=== PATIENT | male | born 1970 | race American Indian/Alaskan Native ===

== ENCOUNTER 2016-07-20 19:19 | Emergency (ER) | payer OTHER ==
[2016-07-20 20:40] LABS: Basophils % (Auto) 0.9 % (0.0-1.8); Eosinophils % (Auto) 0.6 % (0.0-4.3); Hematocrit 50.2 % (35.5-45.6); Hemoglobin 16.7 gm/dl (11.8-15.2); Mean Corpuscular HGB Conc 33 % (32-34); Mean Corpuscular Hemoglobin 32 pg (28-32); Mean Corpuscular Volume 97 fl (84-94); Platelet Count 300 K/mm3 (140-440); Red Blood Count 5.19 M/mm3 (3.65-5.03); Red Cell Distribution Width 13.4 % (13.2-15.2); White Blood Count 8.5 K/mm3 (4.5-11.0)
--- NOTE | 2016-07-20 20:55 | Cat Scan Report ---
FINAL REPORT PROCEDURE: CT HEAD/BRAIN WO CON TECHNIQUE: Computerized tomography of the head was performed without contrast material. HISTORY: GONCALVES, dizzy COMPARISON: No prior studies are available for comparison. FINDINGS: Skull and scalp: Normal. Paranasal sinuses: Mild opacification of the ethmoid sinuses. Nasal bone fracture, age is not determined.. Ventricles and subarachnoid spaces: Normal. Cerebrum: No evidence of hemorrhage, acute infarction or mass . Cerebellum and brainstem: No evidence of hemorrhage, acute infarction or mass. Vasculature: Normal. Comments: None. IMPRESSION: There is no evidence of an acute intracranial process.
[2016-07-20 21:01] LABS: Alanine Aminotransferase 21 units/L (7-56); Albumin 4.5 g/dL (3.9-5); Albumin/Globulin Ratio 1.2 %; Alkaline Phosphatase 62 units/L (35-129); Anion Gap 19 mmol/L; Blood Urea Nitrogen 15 mg/dL (9-20); Calcium 9.5 mg/dL (8.4-10.2); Carbon Dioxide 24 mmol/L (22-30); Chloride 99.4 mmol/L (98-107); Glucose 79 mg/dL (75-100); Potassium 4.4 mmol/L (3.6-5.0); Sodium 138 mmol/L (137-145); Total Protein 8.4 g/dL (6.3-8.2)
--- NOTE | 2016-07-21 02:20 | Emergency Department Report ---
HPI - General Chief Complaint: Headache Time Seen by Provider: 07/21/16 02:04 - HPI HPI: Room 24 The patient is a 46-year-old male presenting with a chief complaint of headache. The patient states earlier today he had a frontal headache described as a migraine. Patient states he "had a situation" which led him to get upset. The patient states he then began to get double vision in his left eye. 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 The patient states he developed nausea but denied vomiting. The patient states vomiting is bothering him currently is a headache which he gives a score of 9/10 Location: Head Duration: [see above] Quality: Headache Severity: 9/10 Modifying factors: [see above] Context: [see above] Mode of transportation: The patient drove himself to the emergency department and there are no visitors present ED Past Medical Hx - Past Medical History Hx Hypertension: Yes Additional medical history: Glaucoma - Surgical History Past Surgical History?: No - Family History Family history: no significant - Social History Smoking Status: Never Smoker Substance Use Type: None - Medications Home Medications: Home Medications Medication Instructions Recorded Confirmed Last Taken Type HYDROcodone/APAP 5-325 [[place] 1 - 2 each PO Q6HR PRN #14 tablet 07/21/16 Unknown Rx 5/325] Ondansetron [Zofran Odt] 4 mg PO Q8H PRN #20 tab.rapdis 07/21/16 Unknown Rx ED Review of Systems ROS: Stated complaint: BLUR VISION, HEADACHES Other details as noted in HPI Comment: All other systems reviewed and negative Constitutional: denies: chills, fever Eyes: vision change ENT: denies: ear pain, throat pain Respiratory: denies: cough, shortness of breath, wheezing Cardiovascular: denies: chest pain, palpitations Endocrine: no symptoms reported Gastrointestinal: nausea. denies: abdominal pain, vomiting, diarrhea Genitourinary: denies: urgency, dysuria Musculoskeletal: denies: back pain, joint swelling, arthralgia Skin: denies: rash, lesions Neurological: headache. denies: weakness, paresthesias Psychiatric: denies: anxiety, depression Hematological/Lymphatic: denies: easy bleeding, easy bruising Physical Exam - Physical Exam Vital Signs: Vital Signs 07/20/16 07/21/16 07/21/16 19:56 00:48 00:50 Temperature 98.7 F Pulse Rate 73 Respiratory Rate Blood Pressure 124/84 149/94 O2 Sat by Pulse 98 100 93 Oximetry 07/21/16 07/21/16 01:00 01:25 Temperature Pulse Rate Respiratory 14 Rate Blood Pressure 127/81 O2 Sat by Pulse 97 98 Oximetry Physical Exam: GENERAL: The patient is well-developed well-nourished male lying on stretcher resting not appearing to be in acute distress. [] HEENT: Normocephalic. Atraumatic. Extraocular motions are intact. Patient has moist mucous membranes. Visual acuity 20/25 OS. Vikram-Pen values OS: 8, 10 , 16 NECK: Supple. No meningitic signs are noted. Trachea midline CHEST/LUNGS: Clear to auscultation. There is no respiratory distress noted. HEART/CARDIOVASCULAR: Regular. There is no tachycardia. There is no gallop rub or murmur. ABDOMEN: Abdomen is soft, nontender. Patient has normal bowel sounds. There is no abdominal distention. SKIN: There is no rash. There is no edema. There is no diaphoresis. NEURO: The patient is awake, alert, and oriented. The patient is cooperative. The patient has no focal neurologic deficits. The patient has normal speech. Cranial nerves II through XII grossly intact MUSCULOSKELETAL: There is no evidence of acute injury. ED Course Vital Signs 07/20/16 07/21/16 07/21/16 19:56 00:48 00:50 Temperature 98.7 F Pulse Rate 73 Respiratory Rate Blood Pressure 124/84 149/94 O2 Sat by Pulse 98 100 93 Oximetry 07/21/16 07/21/16 01:00 01:25 Temperature Pulse Rate Respiratory 14 Rate Blood Pressure 127/81 O2 Sat by Pulse 97 98 Oximetry ED Medical Decision Making - Lab Data Result diagrams: 07/20/16 20:14 07/20/16 20:14 Laboratory Tests 07/20/16 07/20/16 20:14 20:14 WBC 8.5 RBC 5.19 H Hgb 16.7 H Hct 50.2 H MCV 97 H MCH 32 MCHC 33 RDW 13.4 Plt Count 300 Lymph % (Auto) 17.6 Crawford % (Auto) 6.3 Eos % (Auto) 0.6 Baso % (Auto) 0.9 Lymph # 1.5 Crawford # 0.5 Eos # 0.1 Baso # 0.1 Seg Neutrophils % 74.6 H Seg Neutrophils # 6.3 Carbon Dioxide 24 BUN 15 Creatinine 1.0 Estimated GFR > 60 BUN/Creatinine Ratio 15.00 Glucose 79 Calcium 9.5 Total Bilirubin 0.50 AST 30 ALT 21 Alkaline Phosphatase 62 Total Protein 8.4 H Albumin 4.5 Albumin/Globulin Ratio 1.2 Sodium 138, potassium 4.4, chloride 99.4 - Differential Diagnosis ICH, intracranial mass, glaucoma, headache, Critical care attestation.: If time is entered above; I have spent that time in minutes in the direct care of this critically ill patient, excluding procedure time. ED Disposition Clinical Impression: Headache Disposition: DISCHARGED TO HOME OR SELFCARE Is pt being admited?: No Does the pt Need Aspirin: No Condition: Stable Instructions: Acute Headache (ED), Glaucoma (ED) Additional Instructions: Return to the emergency department immediately should you develop worsening symptoms, fever, inability to tolerate food or liquid or any other concerns. Prescriptions: HYDROcodone/APAP 5-325 [[place] 5/325] 1 - 2 each PO Q6HR PRN #14 tablet PRN Reason: Pain Ondansetron [Zofran Odt] 4 mg PO Q8H PRN #20 tab.rapdis PRN Reason: Nausea Referrals: SIERRA HIRSCH MD [Staff Physician] - 3-5 Days (Dr. Hirsch is an license and permit specialist. Please follow up with him to be established as a patient) JAREN KHOURY MD [Staff Physician] - 3-5 Days (Dr. Khoury is a primary physician. Please follow up with him to be established as a patient) [facility] [Outside] - 3-5 Days Time of Disposition: 04:16
--- NOTE | 2016-07-21 03:57 | Cat Scan Report ---
FINAL REPORT PROCEDURE: CT HEAD/BRAIN WO CON TECHNIQUE: Computerized tomography of the head was performed without contrast material. HISTORY: headache COMPARISON: No prior studies are available for comparison. FINDINGS: Skull and scalp: Normal. Paranasal sinuses: Normal. Ventricles and subarachnoid spaces: Normal. Cerebrum: No evidence of hemorrhage, acute infarction or mass . Cerebellum and brainstem: No evidence of hemorrhage, acute infarction or mass. Vasculature: Normal. Comments: None. IMPRESSION: Normal Examination
[2016-07-21] MEDS ORDERED: ZOFRAN ODT PO ONE (04:11)
[2016-07-21] MEDS ORDERED: SUBLIMAZE IM ONE (04:37)
[2016-07-21 05:01] VITALS: BP 121/80
== END 2016-07-21 04:45 | disposition home or self-care (01) ==
LOC: ED 19:19
DX: R51 Headache (principal); I10 Essential (primary) hypertension; H40.9 Unspecified glaucoma
CPT/HCPCS: 36415; 70450; 80053; 85025; 96372; 99284; J3010; Q0162